=== PATIENT | female | born 1990 | race Caucasian/White ===

== ENCOUNTER 2018-11-20 09:28 | Emergency (ER) | payer OTHER ==
[~2018-11-20] VITALS: Ht 162.6 cm; Wt 98.7 kg
[2018-11-20 09:34] VITALS: BP 139/69; PULSE 86; RESP 18; Ht 162.6 cm; Wt 98.7 kg
== END 2018-11-20 11:43 | disposition home or self-care (01) ==
LOC: FTE 09:28
DX: J02.9 Acute pharyngitis, unspecified (principal)
CPT/HCPCS: 87880; Z7502; 99283